=== PATIENT | male | born 1955 | race Caucasian/White ===

== ENCOUNTER 2022-03-20 08:23 | Outpatient (CLI) | payer BC, MEDICARE | END 2022-03-20 08:24 | disposition home or self-care (01) | LOC: CSHULT 08:23 | PROVIDERS: ATTEND Urology | DX: N20.0 Calculus of kidney (principal) | CPT/HCPCS: 76770 ==

== ENCOUNTER 2022-07-27 22:40 | Emergency (ER) | payer BC, MEDICARE ==
[2022-07-28 00:23] LABS: #Eosinphils 0.1 10x3/uL (0.0-0.5); #Monocytes 0.5 10x3/uL (0.0-1.1); #Neutrophils 8.8 10x3/uL (1.5-8.4); %Basophils 0.2 % (0.0-2.0); %Eosinophils 1.1 % (0.0-6.0); %Lymphocytes 8.9 % (18.0-47.0); %Monocytes 4.9 % (0.0-10.0); %Neutrophils 84.5 % (40.0-75.0); Hemoglobin 12.9 g/dL (13.5-17.5); Mean Corpuscular HGB CONC 34.4 g/dL (32.0-36.0); Mean Corpuscular Hemoglobin 32.7 pg (27.0-33.0); Mean Corpuscular Volume 94.9 fl (81.2-95.1); Mean Platelet Volume 8.8 fl (7.4-10.4); Platelet Count 213 10x3/uL (150-450); RBC Distribution Width 14.2 % (11.5-14.5); Red Blood Cell (RBC) Count 3.95 10x6/uL (4.32-5.72); White Blood Cell (WBC) Count 10.4 10x3/uL (3.5-10.5)
[2022-07-28] MEDS ORDERED: Morphine 4 MG/ML VIAL ONE ×2 (00:23→03:21)
[2022-07-28] MEDS ORDERED: Ondansetron PF 4 MG/2 ML Vial ONE (00:25)
[2022-07-28] MEDS ORDERED: HYDROcodone/Acetaminophen 5/325 mg Tablet ONE (00:33)
[2022-07-28 00:38] LABS: ALT (SGPT) 22 U/L (8-55); AST (SGOT) 25 U/L (5-34); Albumin 4.5 g/dL (3.4-4.8); Alkaline Phosphatase 86 U/L (40-110); Anion Gap 15 mmol/L (10-20); BUN (Urea Nitrogen) 31 mg/dL (8.4-25.7); Bilirubin, Total 0.7 mg/dL (0.2-1.2); Calc. Creatinine Clearance 0 mL/min (70-130); Carbon Dioxide 24 mmol/L (23-31); Chloride 104 mmol/L (98-107); Estimated GFR 41; Glucose 170 mg/dL (80-115); Potassium 4.3 mmol/L (3.5-5.1); Protein, Total 7.5 g/dL (5.8-8.1); Sodium 139 mmol/L (136-145)
[2022-07-28] MEDS ORDERED: Lidocaine 1% (PF) 30 ML VIAL ONE (03:37)
== END 2022-07-28 05:10 | disposition home or self-care (01) ==
LOC: CSHERS 22:40
DX: N13.9 Obstructive and reflux uropathy, unspecified (principal); R31.9 Hematuria, unspecified; E11.9 Type 2 diabetes mellitus without complications; E78.5 Hyperlipidemia, unspecified; E78.00 Pure hypercholesterolemia, unspecified; I10 Essential (primary) hypertension; Z79.899 Other long term (current) drug therapy
CPT/HCPCS: 74176; 80053; 85025; 87086; 96374; 96375; J2001; J2270; J2405